=== PATIENT | female | born 1995 | race Caucasian/White ===

== ENCOUNTER 2017-01-19 16:59 | Emergency (ER) | payer SELFPAY ==
[~2017-01-19] VITALS: Ht 160 cm; Wt 79.8 kg
[2017-01-19] MEDS ORDERED: PROMETHAZINE INJ 25 MG/ML (PHENERGAN) AMP IVP STA (17:37)
[2017-01-19] MEDS ORDERED: NS IV 1000 ML 1,000 ML IV ONE (17:37)
[2017-01-19 17:46] LABS: BASOPHILS # (AUTO) 0.1 10^3/uL (0.0-0.1); BASOPHILS % (AUTO) 0 % (0-10); EOSINOPHILS # (AUTO) 0.2 10^3/uL (0.0-0.3); EOSINOPHILS % (AUTO) 1 % (0-10); LYMPHOCYTES # (AUTO) 2.4 X 10^3 (1.0-4.0); LYMPHOCYTES % (AUTO) 20 % (12-44); MEAN CORPUSCULAR HEMOGLOBIN 30 PG (25-34); MEAN CORPUSCULAR HGB CONC 34 G/DL (32-36); MEAN CORPUSCULAR VOLUME 88 FL (80-99); MEAN PLATELET VOLUME 10.1 FL (7.4-10.4); MONOCYTES # (AUTO) 1.2 X 10^3 (0.0-1.0); MONOCYTES % (AUTO) 10 % (0-12); NEUTROPHILS # (AUTO) 8.5 X 10^3 (1.8-7.8); NEUTROPHILS % (AUTO) 69 % (42-75); PLATELET COUNT 299 10^3/uL (130-400); RED BLOOD COUNT 4.61 10^6/uL (4.35-5.85); RED CELL DISTRIBUTION WIDTH 13.2 % (10.0-14.5); WHITE BLOOD COUNT 12.4 10^3/uL (4.3-11.0)
[2017-01-19 17:47] LABS: BILIRUBIN,URINE NEGATIVE (NEGATIVE); KETONES,URINE NEGATIVE (NEGATIVE); LEUKOCYTE ESTERASE ,URINE 1+ (NEGATIVE); NITRITE,URINE NEGATIVE (NEGATIVE); PH,URINE 8 (5-9); PROTEIN,URINE NEGATIVE (NEGATIVE); UROBILINOGEN,URINE NORMAL (NORMAL); WBC,URINE 0-2 /HPF
[2017-01-19 18:21] LABS: ANION GAP 7 MMOL/L (5-14); ASPARTATE AMINO TRANSFERASE 15 U/L (5-34); BILIRUBIN,TOTAL 0.2 MG/DL (0.1-1.0); BLOOD UREA NITROGEN 9 MG/DL (7-18); BUN/CREATININE RATIO 13; CALCIUM 9.2 MG/DL (8.5-10.1); CARBON DIOXIDE 28 MMOL/L (21-32); CHLORIDE 104 MMOL/L (98-107); CREATININE SERUM 0.67 MG/DL (0.60-1.30); GFR ESTIMATED > 60; GLUCOSE 89 MG/DL (70-105); POTASSIUM 4.1 MMOL/L (3.6-5.0); SODIUM 139 MMOL/L (135-145)
[2017-01-19 18:22] LABS: ALANINE AMINOTRANSFERASE 18 U/L (0-55); ALBUMIN 3.9 GM/DL (3.2-4.5); TOTAL PROTEIN 6.7 GM/DL (6.4-8.2)
--- NOTE | 2017-01-19 18:53 | ED Abdominal Pain ---
General Chief Complaint: Abdominal/GI Problems Stated Complaint: ABD PAIN Nursing Triage Note: PT REPROTS SHE HAS BEEN TOLD IN THE PAST SHE HAS GALLBLADDER ISSUES. pT REPROTS PAIN STARTED AFTER SHE ATE A JALEPENO BISCUIT AROUND 1200. PT STATES PAIN IS WORSE WITH SPICY FOODS. Sepsis Screen: No Definite Risk History of Present Illness Time Seen By Provider: 17:20 Initial Comments Patient reports right upper and lower quadrant pain. She was told a proximally 6 months ago in [place], [place] ED that she needed a cholecystectomy. She never had follow-up or was evaluated by a surgeon. She has been doing fine until the last 2 days. She reports having diarrhea yesterday and vomited one time prior to arrival today. She eats primarily spicy foods and states that it makes her abdominal pain worse. Timing/Duration: Intermittent Severity/Quality: Moderate Location: RUQ, LUQ, Flank (right) Radiation: No Radiation Modifying Factors: Improves With Lying down, Improves With Resting Associated Symptoms: Denies Symptoms Allergies and Home Medications Allergies Coded Allergies: ondansetron (Verified Allergy, Unknown, 01/19/17) Home Medications Hydrocodone/Acetaminophen 1 Each Tablet, 1 EACH PO Q4H PRN for PAIN, #20 Ref 0 Prescribed by: SHANNA ARREDONDO on 01/19/172053 Promethazine HCl 25 Mg Tablet, 25 MG PO Q6H PRN for NAUSEA/VOMITING, #12 Ref 0 Prescribed by: SHANNA ARREDONDO on 01/19/172053 Review of Systems Constitutional: no symptoms reported, see HPI EENTM: No Symptoms Reported, See HPI Gastrointestinal: See HPI, Abdominal Pain, Nausea, Vomiting Genitourinary: See HPI, Flank Pain All Other Systems Reviewed Negative Unless Noted: Yes Past Elsupff-Wqkmgs-Ukywjm Hx Patient Social History Alcohol Use: Denies Use Recreational Drug Use: No Smoking Status: Current Everyday Smoker Type Used: Cigarettes Recent Foreign Travel: No Contact w/Someone Who Travel: No Recent Infectious Disease Expo: No Physical Abuse: No Sexual Abuse: No Mistreated: No Fear: No Psychosocial Suicide Risk Score: 0 Reviewed Nursing Assessment Reviewed/Agree w Nursing PMH: Yes Physical Exam Vital Signs VS - Last 72 Hours, by Label 01/19/17 01/19/17 17:30 21:18 Temp 97.4 Pulse 89 78 Resp 20 16 B/P (MAP) Pulse Ox 97 99 Capillary Refill : Less Than 3 Seconds General Appearance: WD/WN, no apparent distress HEENT: PERRL/EOMI, normal ENT inspection, TMs normal, pharynx normal Neck: non-tender, full range of motion, supple, normal inspection Respiratory: chest non-tender, lungs clear, normal breath sounds Cardiovascular: normal peripheral pulses, regular rate, rhythm, no murmur Gastrointestinal: normal bowel sounds, soft, no organomegaly, No rebound, tenderness, other (positive Acosta sign) Back: normal inspection, no vertebral tenderness, CVA tenderness (R), No CVA tenderness (L) Neurologic/Psychiatric: no motor/sensory deficits, alert, normal mood/affect, oriented x 3 Skin: normal color, warm/dry Progress/Results/Core Measures Results/Orders Lab Results Laboratory Tests Test 01/19/17 17:25 01/19/17 17:40 Range/Units Urine Color YELLOW Urine Clarity SLIGHTLY CLOUDY Urine pH 8 5-9 Urine Specific [place] 1.015 L 1.016-1.022 Urine Protein NEGATIVE NEGATIVE Urine Glucose (UA) NEGATIVE NEGATIVE Urine Ketones NEGATIVE NEGATIVE Urine Nitrite NEGATIVE NEGATIVE Urine Bilirubin NEGATIVE NEGATIVE Urine Urobilinogen NORMAL NORMAL MG/DL Urine Leukocyte Esterase 1+ H NEGATIVE Urine RBC (Auto) NEGATIVE NEGATIVE Urine RBC NONE /HPF Urine WBC 0-2 /HPF Urine Squamous Epithelial Cells 2-5 /HPF Urine Crystals PRESENT H /LPF Urine Amorphous Sediment LARGE TING PHOSPHATE H /LPF Urine Bacteria NONE /HPF Urine Casts NONE /LPF Urine Mucus NEGATIVE /LPF Urine Culture Indicated NO White Blood Count 12.4 H 4.3-11.0 10^3/uL Red Blood Count 4.61 4.35-5.85 10^6/uL Hemoglobin 13.7 11.5-16.0 G/DL Hematocrit 40 35-52 % Mean Corpuscular Volume 88 80-99 FL Mean Corpuscular Hemoglobin 30 25-34 PG Mean Corpuscular Hemoglobin Concent 34 32-36 G/DL Red Cell Distribution Width 13.2 10.0-14.5 % Platelet Count 299 130-400 10^3/uL Mean Platelet Volume 10.1 7.4-10.4 FL Neutrophils (%) (Auto) 69 42-75 % Lymphocytes (%) (Auto) 20 12-44 % Monocytes (%) (Auto) 10 0-12 % Eosinophils (%) (Auto) 1 0-10 % Basophils (%) (Auto) 0 0-10 % Neutrophils # (Auto) 8.5 H 1.8-7.8 X 10^3 Lymphocytes # (Auto) 2.4 1.0-4.0 X 10^3 Monocytes # (Auto) 1.2 H 0.0-1.0 X 10^3 Eosinophils # (Auto) 0.2 0.0-0.3 10^3/uL Basophils # (Auto) 0.1 0.0-0.1 10^3/uL Sodium Level 139 135-145 MMOL/L Potassium Level 4.1 3.6-5.0 MMOL/L Chloride Level 104 98-107 MMOL/L Carbon Dioxide Level 28 21-32 MMOL/L Anion Gap 7 5-14 MMOL/L Blood Urea Nitrogen 9 7-18 MG/DL Creatinine 0.67 0.60-1.30 MG/DL Estimat Glomerular Filtration Rate > 60 BUN/Creatinine Ratio 13 Glucose Level 89 70-105 MG/DL Calcium Level 9.2 8.5-10.1 MG/DL Total Bilirubin 0.2 0.1-1.0 MG/DL Aspartate Amino Transf (AST/SGOT) 15 5-34 U/L Alanine Aminotransferase (ALT/SGPT) 18 0-55 U/L Alkaline Phosphatase 87 40-136 U/L Total Protein 6.7 6.4-8.2 GM/DL Albumin 3.9 3.2-4.5 GM/DL My Orders Orders - SHANNA ARREDONDO Ua Culture If Indicated (01/19/17 17:14) Urine Bedside (01/19/17 17:14) Saline Lock/Iv-Start (01/19/17 17:37) Ns Iv 1000 Ml (Sodium Chloride 0.9%) (01/19/17 17:37) Promethazine Injection (Phenergan Injec (01/19/17 17:37) Cbc With Automated Diff (01/19/17 17:37) Comprehensive Metabolic Panel (01/19/17 17:37) Us Gallbladder [id number] (01/19/17 17:56) Ketorolac Injection (Toradol Injection) (01/19/17 20:04) Morphine Injection (Morphine Injection (01/19/17 20:54) Rx-Hydrocodone/Apap 5-325 Mg (Rx-Vicodin (01/19/17 21:00) Rx-Hyoscyamine Tab (Rx-Levsin Sl) (01/19/17 20:54) Medications Given in ED Current Medications Medications Dose Ordered Sig/Kalen Route Start Time Stop Time Status Last Admin Dose Admin Acetaminophen/ Hydrocodone Bitart 1 ea Q4H PRN PO 01/19/17 21:00 01/19/17 21:28 DC 01/19/17 21:00 1 EA Sodium Chloride 1,000 ml @ 0 mls/hr Q0M ONCE IV 01/19/17 17:37 01/19/17 17:42 DC 01/19/17 18:06 0 MLS/HR Vital Signs/I&O Vital Sign - Last 12Hours 01/19/17 01/19/17 17:30 21:18 Temp 97.4 Pulse 89 78 Resp 20 16 B/P (MAP) Pulse Ox 97 99 Intake and Output 01/20/17 00:00 Intake Total 1000 ml Balance 1000 ml Progress Note : Time: 17:20 Progress Note Initial evaluation completed, recommended UA, hCG, CBC, CMP ultrasound of the gallbladder. Phenergan 25 mg IV for nausea. 1 L IV fluids, normal saline. 1829 patient reports nausea has improved. Reviewed results of her labs. Will wait for the ultrasound of the gallbladder and then discussed plans for further treatment. 1999 ultrasound shows 2 gallstones, one in the neck and one in the fundus. The neck stone is not moving. Thickening of the CBD. Discussed results of exam with the patient. She is reporting increased pain, Toradol 30 mg IV. [address] Brown about the patient, reviewed ultrasound findings. Patient is stable this time. He will see her in the office on 01/23/17 and plan surgery for next week. 2049 patient reports pain has become worse, morphine 5 mg IV for pain. 2129 patient reports pain has improved, discussed plan for her to follow up with Dr. Brown next week. She agreed with this treatment plan. Discussed at length recommendations for dietary restrictions. All questions answered. Diagnostic Imaging Diagonstic Imaging: Ultrasound Plain Films/CT/US/NM/MRI: other Comments NAME: LIZY SIMMONSCIE Kirti MED REC#: [id number] PT STATUS: REG ER : 1995 PHYSICIAN: SHANNA ARREDONDO ADMIT DATE: 01/19/17/ER Signed Date of Exam: 01/19/17 US GALLBLADDER [id number] PROCEDURE: US Gallbladder. TECHNIQUE: Multiple real-time grayscale images were obtained over the right upper quadrant in various projections. INDICATION: Abdominal pain COMPARISON: None FINDINGS: The size and echogenicity of the liver is normal. There is no mass or intrahepatic biliary duct dilatation. Portal venous flow is normal. Common bile duct is prominent for the patient's age is at 6.5 mm. There is cholelithiasis without cholecystitis. Overlying bowel gas obscures the kidneys and pancreas. There is no free fluid. IMPRESSION: 1. Cholelithiasis without cholecystitis 2. Prominent common bile duct. Consider MRCP on a nonemergent basis. Dictated by: Dictated on workstation # [id number] Dict: 01/19/172019 Trans: 01/19/172029 Interpreted by: TOSHIA HAWK Electronically signed by: TOSHIA HAWK 01/19/172029 Reviewed: Reviewed by Me Departure Impression Impression: Primary Impression: Cholelithiasis Qualified Codes: K80.20 - Calculus of gallbladder without cholecystitis without obstruction Additional Impression: Pain in the abdomen Qualified Codes: R10.11 - Right upper quadrant pain Disposition: 01 HOME, SELF-CARE Condition: Stable Departure-Patient Inst. Decision time for Depature: 20:35 Referrals: NO,LOCAL PHYSICIAN (PCP) Primary Care Physician Patient Instructions: Gallstones (DC) Add. Discharge Instructions: Eat a bland, low-fat, non-fried diet. Use pain medication as needed. Call Dr. Brown's office tomorrow [phone] for appt 01/23/17 Return to emergency department for fever greater than 101, pain not relieved with medicine, or new problems. All discharge instructions reviewed with patient and/or family. Voiced understanding. Scripts Promethazine HCl (Promethazine Tablet) 25 Mg Tablet 25 MG PO Q6H Y for NAUSEA/VOMITING, #12 TAB 0 Refills Prov: SHANNA ARREDONDO 01/19/17 Hydrocodone/Acetaminophen (Hydrocodon -Acetaminophen 5-325) 1 Each Tablet 1 EACH PO Q4H Y for PAIN, #20 TAB 0 Refills Prov: SHANNA ARREDONDO 01/19/17 Copy Copies To 1: KARLOS BROWN AMY ARNP Jan 19, 2017 18:53
[2017-01-19] MEDS ORDERED: KETOROLAC 30 MG/ML VIAL IVP STA (20:04)
--- NOTE | 2017-01-19 20:23 | Diagnostic Imaging Report ---
PROCEDURE: US Gallbladder. TECHNIQUE: Multiple real-time grayscale images were obtained over the right upper quadrant in various projections. INDICATION: Abdominal pain COMPARISON: None FINDINGS: The size and echogenicity of the liver is normal. There is no mass or intrahepatic biliary duct dilatation. Portal venous flow is normal. Common bile duct is prominent for the patient's age is at 6.5 mm. There is cholelithiasis without cholecystitis. Overlying bowel gas obscures the kidneys and pancreas. There is no free fluid. IMPRESSION: 1. Cholelithiasis without cholecystitis 2. Prominent common bile duct. Consider MRCP on a nonemergent basis. Dictated by: Dictated on workstation # [id number]
[2017-01-19] MEDS ORDERED: morphine INJ 10 MG/ML 1ML (SYR OR VIAL) IVP STA (20:54)
[2017-01-19] MEDS ORDERED: HYDR-3812 PO (20:54)
[2017-01-19] MEDS ORDERED: RX-HYOSCYAMINE 0.125 MG SL (LEVSIN) PPK#6 SL STA (20:54)
[2017-01-19] MEDS ORDERED: PROM25TA14 PO (20:54)
[2017-01-19] MEDS ORDERED: RX-HYDROCODONE/APAP 5/325 MG #4 TAB PK PO PRN (21:00)
[2017-01-19 21:18] VITALS: BP 129/76
== END 2017-01-19 21:18 | disposition home or self-care (01) ==
LOC: ER 17:02
DX: K80.20 Calculus of gallbladder without cholecystitis without obstruction (principal); F17.210 Nicotine dependence, cigarettes, uncomplicated; Z90.49 Acquired absence of other specified parts of digestive tract
CPT/HCPCS: 36415; 76705; 80053; 81000; 84703; 85025; 96361; 96374; 96375

== ENCOUNTER 2017-11-21 14:09 | Observation (INO) | payer MEDICAID ==
[~2017-11-21] VITALS: Ht 160 cm; Wt 91.6 kg
[~2017-11-21 14:09] MED LIST: ACHD5005 PO; PROM25TA14 PO
[2017-11-21 16:18] VITALS: BP 116/61
[2017-11-22 07:05] VITALS: BP 110/61
[2017-11-22 07:30] VITALS: BP 117/61
--- NOTE | 2017-11-22 08:15 | Clinic Account Progress/Dx ---
Clinic Account Progress/Dx DIAGNOSIS: Date Seen by Provider: Nov 22, 2017 Time Seen by Provider: 08:11 33wk GA Variable deceleration noted in FHR in the OP clinic Hx of demise at 27 wk w/ previous Reassuring/reactive FHT on tracing throughout observation Progress Note: Patient admitted for observation due to noted variable decels on NST at the clinic. Hx of demise at 27 wk w/ prior following abdominal trauma. Physical Exam: gravid uterus, NTTP toco - rare small contraction FHT 140-150's w/ accelerations Plan: BPP scheduled for this am - if normal will DC home. GILES CHAIREZ DO Nov 22, 2017 08:15
--- NOTE | 2017-11-22 10:24 | Diagnostic Imaging Report ---
biophysical profile score. INDICATION: Decreased movement. There are no prior studies available for comparison. There is single live fetus in cephalic presentation. heart motion was noted at a rate of 140 bpm was recorded. The biophysical profile score is 8 out of 8 and within normal limits. The amniotic fluid index is 9.3 (normal 8-22 CM). The placenta appears to be fundal. There is no previa or abruption. IMPRESSION: 1. There is a single live fetus in cephalic presentation. 2. The biophysical profile score is 8 out of 8 and within normal limits. Dictated by: Dictated on workstation # [id number]
== END 2017-11-22 09:05 | disposition home or self-care (01) ==
LOC: EDSTATUS 14:09 → LDRP 15:55 → WSo 16:02 → LDRP 11-22 08:10 → UNDOADMOB 11-22 08:10 → WSo 11-22 08:10 → LDRP 11-22 08:10 → UNDODISOB 11-22 09:05 → WSo 11-22 09:05 → LDRP 11-22 09:05
PROVIDERS: ADMIT Family Medicine; ATTEND Family Medicine
DX: O36.8330 Maternal care for abnormalities of the fetal heart rate or rhythm, third trimester, not applicable or unspecified (principal); Z3A.33 33 weeks gestation of pregnancy
CPT/HCPCS: 76819; 99211; G0378

== ENCOUNTER 2017-11-25 10:22 | Outpatient (CLI) | payer MEDICAID ==
[~2017-11-25] VITALS: Ht 160 cm; Wt 93.6 kg
[2017-11-25 12:13] LABS: BILIRUBIN,URINE NEGATIVE (NEGATIVE); CLARITY,URINE CLEAR; COLOR,URINE YELLOW; GLUCOSE, URINE (UA) NEGATIVE (NEGATIVE); KETONES,URINE NEGATIVE (NEGATIVE); LEUKOCYTE ESTERASE ,URINE 3+ (NEGATIVE); NITRITE,URINE NEGATIVE (NEGATIVE); PH,URINE 7 (5-9); PROTEIN,URINE NEGATIVE (NEGATIVE); UROBILINOGEN,URINE NORMAL (NORMAL)
[2017-11-25 12:21] LABS: BACTERIA,URINE TRACE /HPF
--- NOTE | 2017-11-27 21:04 | Physician Query-Final Dx ---
CARLA SWANSON 11/27/17 2104: Clinic Account Progress/Dx Physician Query: Please give diagnosis Date of Service Nov 25, 2017 at 10:22 CHARLI KAM DO 11/30/17 0928: Clinic Account Progress/Dx DIAGNOSIS: Diagnosis Contractions CARLA SWANSON Nov 27, 2017 21:04 CHARLI KAM DO Nov 30, 2017 09:28
== END 2017-11-25 12:00 | disposition home or self-care (01) ==
LOC: WSo 10:22 → LDRP 10:22 → WSo 12:00
PROVIDERS: ATTEND Family Medicine
DX: O60.03 Preterm labor without delivery, third trimester (principal); Z3A.32 32 weeks gestation of pregnancy
CPT/HCPCS: 81000; 87077; 87088; 99213

== ENCOUNTER 2017-12-16 21:40 | Outpatient (CLI) | payer MEDICAID ==
[~2017-12-16] VITALS: Ht 160 cm; Wt 98.9 kg
[2017-12-16 21:50] VITALS: BP 123/69
[2017-12-16 22:14] LABS: BILIRUBIN,URINE NEGATIVE (NEGATIVE); CLARITY,URINE CLEAR; COLOR,URINE YELLOW; GLUCOSE, URINE (UA) NEGATIVE (NEGATIVE); KETONES,URINE NEGATIVE (NEGATIVE); LEUKOCYTE ESTERASE ,URINE 3+ (NEGATIVE); NITRITE,URINE NEGATIVE (NEGATIVE); PH,URINE 7 (5-9); PROTEIN,URINE NEGATIVE (NEGATIVE); UROBILINOGEN,URINE NORMAL (NORMAL)
[2017-12-16 22:36] LABS: BACTERIA,URINE MODERATE /HPF; TRICHOMONAS,URINE FEW /HPF
[2017-12-16] MEDS ORDERED: metroNIDAZOLE 500 MG (FLAGYL) TAB PO ONE (23:15)
[2017-12-17] MEDS ORDERED: ACETAMINOPHEN 325 MG TABLET ONE (00:05)
[2017-12-17] MEDS ORDERED: ACETAMINOPHEN 500 MG TAB (TYLENOL) PO ONE (00:15)
--- NOTE | 2017-12-20 14:33 | Physician Query-Final Dx ---
CARLA SWANSON 12/20/17 1433: Clinic Account Progress/Dx Physician Query: Please give diagnosis Please provide dx and weeks of gestation. Date of Service Dec 16, 2017 at 21:40 HUMBLE PERDUE MD 12/29/17 1632: Clinic Account Progress/Dx DIAGNOSIS: Diagnosis 37 weeks gestation Contractions with no cervical change CARLA SWANSON Dec 20, 2017 14:33 HUMBLE PERDUE MD Dec 29, 2017 16:32
== END 2017-12-17 00:20 | disposition home or self-care (01) ==
LOC: WSo 21:40 → LDRP 21:41 → WSo 12-17 00:20
PROVIDERS: ATTEND Family Medicine
DX: O47.1 False labor at or after 37 completed weeks of gestation (principal); Z3A.37 37 weeks gestation of pregnancy
CPT/HCPCS: 81000; 87088; 99214

== ENCOUNTER 2018-11-28 05:49 | Outpatient (CLI) | payer MEDICAID ==
[~2018-11-28] VITALS: Ht 160 cm; Wt 98.9 kg
[2018-11-30] MEDS ORDERED: IBUP-1773 PO (08:51)
== END 2018-11-28 09:34 | disposition home or self-care (01) ==
LOC: PREOP 05:49
PROVIDERS: ATTEND Obstetrics & Gynecology
DX: Z01.818 Encounter for other preprocedural examination (principal)

== ENCOUNTER 2018-11-30 08:09 | Day surgery (SDC) | payer MEDICAID ==
[2018-11-30] VITALS (12 sets, daily range): BP systolic 94–124; BP diastolic 46–64
[~2018-11-30] VITALS: Ht 160 cm; Wt 98.9 kg
--- OUTSIDE RECORDS SUMMARY | 2018-11-30 08:16 | XMS REPORT ---
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 [id number] ALLERGIES No Information ENCOUNTERS Encounter Location Date Diagnosis [place] [id number] [place] [address] Nov, [place] [address] [address] Nov, Third trimester Z34.93 ; 37 weeks gestation of Z3A.37 ; Late care affecting in third trimester O09.33 and Previous section Z98.891 [place] [id number] [place] [address] Nov, [place] [id number] [place] [address] Nov, [place] [id number] [place] [address] Nov, Third trimester Z34.93 and 36 weeks gestation of Z3A.36 [place] [id number] [place] [phone] 08 Nov, 2017 Third trimester Z34.93 and 35 weeks gestation of Z3A.35 [place] [id number] [place] [address] Nov, [place] [id number] [place] [address] Oct, [place] [address] [facility] [id number] [address] Oct, UTI (urinary tract infection) in in third trimester O23.43 [place] [address], [place] [address] Oct, Third trimester Z34.93 ; Decreased movements in third trimester, single or unspecified fetus O36.8130 and 33 weeks gestation of Z3A.33 [place] [address], [place] [address] Oct, Third trimester Z34.93 ; 30 weeks gestation of Z3A.30 ; Previous section complicating O34.219 and Encounter for immunization Z23 [place] [address] [address] Sep, [place] [id number] [address] Sep, test positive Z32.01 IMMUNIZATIONS No Known Immunizations SOCIAL HISTORY Never Assessed REASON FOR VISIT OB 1wk f/u -- chaparrita andujar PLAN OF CARE Activity Details Follow Up 1 Week Reason: VITAL SIGNS Height 63 in 2017-12-20 Weight 218.0 lbs 2017-12-20 Temperature 97.8 degrees Fahrenheit 2017-12-20 BMI 38.617 kg/m2 2017-12-20 Blood pressure systolic 128 mmHg 2017-12-20 Blood pressure diastolic 78 mmHg 2017-12-20 MEDICATIONS Medication Instructions Dosage Frequency Start Date End Date Duration Status 28-0.8 MG Orally Once a day 1 tablet 24h Active RESULTS Name Result Date Reference Range UA OB DIP (IN HOUSE) 2017-12-20 Glucose negative Protein negative PROCEDURES Procedure Date Ordered Result Body Site URINE-NO MICRO Dec 20, 2017 INSTRUCTIONS MEDICATIONS ADMINISTERED No Known Medications MEDICAL (GENERAL) HISTORY Type Description Date Medical History Asthma Medical History Depression Surgical History cholecystectomy Surgical History tonsillectomy and adenoidectomy Hospitalization History UTI/ monitoring 11/21/17
--- OUTSIDE RECORDS SUMMARY | 2018-11-30 08:17 | XMS REPORT ---
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 0182996567346 ALLERGIES No Information ENCOUNTERS Encounter Location Date Diagnosis [place] [id number] [place] [address] Nov, [place] [address] [address] Nov, Third trimester Z34.93 ; 37 weeks gestation of Z3A.37 ; Late care affecting in third trimester O09.33 and Previous section Z98.891 [place] [address] [id number] [place] [address] Nov, [place] [address] [id number] [place] [address] Nov, [place] [address] [id number] [place] [address] Nov, Third trimester Z34.93 and 36 weeks gestation of Z3A.36 [place] [address] [address] 08 Nov, 2017 Third trimester Z34.93 and 35 weeks gestation of Z3A.35 [place] [address] [id number] [place] [phone] Nov, [place] [address] [address] Oct, [place] [address] [facility] [id number] [address] Oct, UTI (urinary tract infection) in in third trimester O23.43 [place] [address] [address] Oct, Third trimester Z34.93 ; Decreased movements in third trimester, single or unspecified fetus O36.8130 and 33 weeks gestation of Z3A.33 [place] [address] [place] [address] Oct, Third trimester Z34.93 ; 30 weeks gestation of Z3A.30 ; Previous section complicating O34.219 and Encounter for immunization Z23 [place] [address] [address] Sep, [place] [address] [place] [address] Sep, test positive Z32.01 IMMUNIZATIONS No Known Immunizations SOCIAL HISTORY Never Assessed REASON FOR VISIT test (walk-in) PLAN OF CARE VITAL SIGNS MEDICATIONS Unknown Medications RESULTS Name Result Date Reference Range TEST, URINE (IN HOUSE) 2017-10-23 RESULTS POSITIVE Lot # [id number] Control + Exp date 28 Feb 2019 PROCEDURES Procedure Date Ordered Result Body Site URINE TEST October 23, 2017 INSTRUCTIONS MEDICATIONS ADMINISTERED No Known Medications MEDICAL (GENERAL) HISTORY Type Description Date Medical History Asthma Medical History Depression Surgical History cholecystectomy Surgical History tonsillectomy and adenoidectomy Hospitalization History UTI/ monitoring 11/21/17
--- OUTSIDE RECORDS SUMMARY | 2018-11-30 08:17 | XMS REPORT ---
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 [id number] ALLERGIES Substance Reaction Event Type Date Status Bria Hives Drug Allergy Oct, Active Codeine Sulfate anaphylaxis Drug Allergy Oct, Active ENCOUNTERS Encounter Location Date Diagnosis [place] [address] [place] [address] Nov, [place] [address] [place] [id number] [place] [address] Nov, Third trimester Z34.93 ; 37 weeks gestation of Z3A.37 ; Late care affecting in third trimester O09.33 and Previous section Z98.891 [place] [address] [place] [address] Nov, [place] [address] [place] [id number] [place] [address] Nov, [place] [address] [address] [id number] [place] [address] Nov, Third trimester Z34.93 and 36 weeks gestation of Z3A.36 [place] [address] [place] [address] [id number] [place] [address] Nov, Third trimester Z34.93 and 35 weeks gestation of Z3A.35 [place] [address] [address] [id number] [place] [address] Nov, [place] [address] [place] [address] [id number] [place] [address] Oct, [place] [address] [place] [address] Oct, UTI (urinary tract infection) in in third trimester O23.43 [place] [address] [address] Oct, Third trimester Z34.93 ; Decreased movements in third trimester, single or unspecified fetus O36.8130 and 33 weeks gestation of Z3A.33 [place] [id number] [place] [address] Oct, Third trimester Z34.93 ; 30 weeks gestation of Z3A.30 ; Previous section complicating O34.219 and Encounter for immunization Z23 [place] [id number] [place] [address] Sep, [place] [address] [place] [address] Sep, test positive Z32.01 IMMUNIZATIONS Vaccine Route Administration Date Status TDAP (BOOSTRIX) IM Intramuscular October 30, 2017 Administered SOCIAL HISTORY Never Assessed REASON FOR VISIT OB-intake. Previously seen by an OB in [place]. Has had a pelvic [facility] PLAN OF CARE Activity Details Follow Up 2 Weeks Reason: VITAL SIGNS Height 63 in 2017-10-30 Weight 201 lbs 2017-10-30 Temperature 98 degrees Fahrenheit 2017-10-30 Heart Rate 94 bpm 2017-10-30 Respiratory Rate 18 2017-10-30 BMI 35.606 kg/m2 2017-10-30 Blood pressure systolic 100 mmHg 2017-10-30 Blood pressure diastolic 60 mmHg 2017-10-30 MEDICATIONS Medication Instructions Dosage Frequency Start Date End Date Duration Status 28-0.8 MG Orally Once a day 1 tablet 24h Active RESULTS No Results PROCEDURES Procedure Date Ordered Result Body Site URINALYSIS, AUTO, W/O SCOPE October 30, 2017 VENIPUNCT, ROUTINE* October 30, 2017 LAB NOT BILLED BY [facility] October 30, 2017 SINGLE IMMUNIZATION ADMIN October 30, 2017 TDAP (BOOSTRIX) October 30, 2017 INSTRUCTIONS MEDICATIONS ADMINISTERED No Known Medications MEDICAL (GENERAL) HISTORY Type Description Date Medical History Asthma Medical History Depression Surgical History cholecystectomy Surgical History tonsillectomy and adenoidectomy Hospitalization History UTI/ monitoring 11/21/17
--- OUTSIDE RECORDS SUMMARY | 2018-11-30 08:17 | XMS REPORT ---
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 8977994323248 ALLERGIES No Information ENCOUNTERS Encounter Location Date Diagnosis [place] [address] [place] [id number] [place] [address] Nov, [place] [address] [address] Nov, Third trimester Z34.93 ; 37 weeks gestation of Z3A.37 ; Late care affecting in third trimester O09.33 and Previous section Z98.891 [place] [address] [place] [address] [id number] [place] [address] Nov, [place] [address] [place] [id number] [place] [address] Nov, [place] [address] [place] [id number] [place] [address] Nov, Third trimester Z34.93 and 36 weeks gestation of Z3A.36 [place] [address] [place] [address] [id number] [place] [address] 08 Nov, 2017 Third trimester Z34.93 and 35 weeks gestation of Z3A.35 [place] [address] [place] [address] [id number] [place] [address] Nov, [place] [address] [place] [id number] [place] [address] Oct, [place] [address] [place] [id number], [place] [address] Oct, UTI (urinary tract infection) in in third trimester O23.43 [place] [address], [place] [address] Oct, Third trimester Z34.93 ; Decreased movements in third trimester, single or unspecified fetus O36.8130 and 33 weeks gestation of Z3A.33 [place] [address] [place] [address] Oct, Third trimester Z34.93 ; 30 weeks gestation of Z3A.30 ; Previous section complicating O34.219 and Encounter for immunization Z23 [place] [address], [place] [address] Sep, [place] [address] [place] [address] Sep, test positive Z32.01 IMMUNIZATIONS No Known Immunizations SOCIAL HISTORY Never Assessed REASON FOR VISIT Requests return call PLAN OF CARE VITAL SIGNS MEDICATIONS Unknown Medications RESULTS No Results PROCEDURES No Known procedures INSTRUCTIONS MEDICATIONS ADMINISTERED No Known Medications MEDICAL (GENERAL) HISTORY Type Description Date Medical History Asthma Medical History Depression Surgical History cholecystectomy Surgical History tonsillectomy and adenoidectomy Hospitalization History UTI/ monitoring 11/21/17
--- OUTSIDE RECORDS SUMMARY | 2018-11-30 08:17 | XMS REPORT ---
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 7908975709639 ALLERGIES Substance Reaction Event Type Date Status Zooliva Hives Drug Allergy Oct, Active Codeine Sulfate anaphylaxis Drug Allergy Oct, Active ENCOUNTERS Encounter Location Date Diagnosis [place] [address] [place] [address] Nov, [place] [address] [place] [id number] [place] [address] Nov, Third trimester Z34.93 ; 37 weeks gestation of Z3A.37 ; Late care affecting in third trimester O09.33 and Previous section Z98.891 [place] [address] [place] [address] Nov, [place] [address] [place] [id number] [place] [address] Nov, [place] [address] [place] [address] [id number] [place] [address] Nov, Third trimester Z34.93 and 36 weeks gestation of Z3A.36 [place] [address] [place] [id number] [place] [address] Nov, Third trimester Z34.93 and 35 weeks gestation of Z3A.35 [place] [address] [place] [id number] [place] [address] Nov, [place] [address] [place] [address] Oct, [place] [id number] [place] [address] Oct, UTI (urinary tract infection) in in third trimester O23.43 [place] [id number] [place] [address] Oct, Third trimester Z34.93 ; Decreased movements in third trimester, single or unspecified fetus O36.8130 and 33 weeks gestation of Z3A.[address] [address] Oct, Third trimester Z34.93 ; 30 weeks gestation of Z3A.30 ; Previous section complicating O34.219 and Encounter for immunization Z23 [place] [id number] [place] [address] Sep, [place] [address] [place] [address] [place] [address] Sep, test positive Z32.01 IMMUNIZATIONS No Known Immunizations SOCIAL HISTORY Never Assessed REASON FOR VISIT sharp pains ;lower part of belly x 1 week -- chaparrita andujar PLAN OF CARE Activity Details Follow Up 2 Weeks Reason: VITAL SIGNS Height 63 in 2017-11-21 Weight 202.0 lbs 2017-11-21 Temperature 98.0 degrees Fahrenheit 2017-11-21 Heart Rate 90 bpm 2017-11-21 Respiratory Rate 22 2017-11-21 BMI 35.783 kg/m2 2017-11-21 Blood pressure systolic 130 mmHg 2017-11-21 Blood pressure diastolic 86 mmHg 2017-11-21 MEDICATIONS Medication Instructions Dosage Frequency Start Date End Date Duration Status 28-0.8 MG Orally Once a day 1 tablet 24h Active RESULTS Name Result Date Reference Range UA OB DIP (IN HOUSE) 2017-11-21 Glucose neg Protein trace PROCEDURES Procedure Date Ordered Result Body Site URINE-NO MICRO November 21, 2017 INSTRUCTIONS MEDICATIONS ADMINISTERED No Known Medications MEDICAL (GENERAL) HISTORY Type Description Date Medical History Asthma Medical History Depression Surgical History cholecystectomy Surgical History tonsillectomy and adenoidectomy Hospitalization History UTI/ monitoring 11/21/17
--- OUTSIDE RECORDS SUMMARY | 2018-11-30 08:17 | XMS REPORT ---
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 2376653665127 ALLERGIES No Information ENCOUNTERS Encounter Location Date Diagnosis [place] [address] [id number] [place] [address] Nov, [place] [address] [address] Nov, Third trimester Z34.93 ; 37 weeks gestation of Z3A.37 ; Late care affecting in third trimester O09.33 and Previous section Z98.891 [place] [address] [place] [id number] [place] [address] Nov, [place] [address] [address] [id number] [place] [address] Nov, [place] [address] [id number] [place] [address] Nov, Third trimester Z34.93 and 36 weeks gestation of Z3A.36 [place] [address] [place] [id number] [place] [address] 08 Nov, 2017 Third trimester Z34.93 and 35 weeks gestation of Z3A.35 [place] [address] [id number] [place] [address] Nov, [place] [address] [id number] [place] [address] Oct, [place] [address] [place] [id number] [address] Oct, UTI (urinary tract infection) in in third trimester O23.43 [place] [address] [address] Oct, Third trimester Z34.93 ; Decreased movements in third trimester, single or unspecified fetus O36.8130 and 33 weeks gestation of Z3A.33 [place] [address] [place] [address] Oct, Third trimester Z34.93 ; 30 weeks gestation of Z3A.30 ; Previous section complicating O34.219 and Encounter for immunization Z23 [place] [address] [address] Sep, [place] [address] [place] [address] Sep, test positive Z32.01 IMMUNIZATIONS No Known Immunizations SOCIAL HISTORY Never Assessed REASON FOR VISIT GBS Positive PLAN OF CARE VITAL SIGNS MEDICATIONS Unknown Medications RESULTS No Results PROCEDURES No Known procedures INSTRUCTIONS MEDICATIONS ADMINISTERED No Known Medications MEDICAL (GENERAL) HISTORY Type Description Date Medical History Asthma Medical History Depression Surgical History cholecystectomy Surgical History tonsillectomy and adenoidectomy Hospitalization History UTI/ monitoring 11/21/17
--- OUTSIDE RECORDS SUMMARY | 2018-11-30 08:17 | XMS REPORT ---
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 1245302677495 ALLERGIES No Information ENCOUNTERS Encounter Location Date Diagnosis [place] [address] [place] [id number] [place] [address] Nov, [place] [address] [address] Nov, Third trimester Z34.93 ; 37 weeks gestation of Z3A.37 ; Late care affecting in third trimester O09.33 and Previous section Z98.891 [place] [address] [place] [address] [id number] [place] [address] Nov, [place] [address] [place] [address] [id number] [place] [address] Nov, [place] [address] [place] [id number] [place] [address] Nov, Third trimester Z34.93 and 36 weeks gestation of Z3A.36 [place] [address] [id number] [place] [address] 08 Nov, 2017 Third trimester Z34.93 and 35 weeks gestation of Z3A.35 [place] [address] [id number] [place] [address] Nov, [place] [address] [address] [id number] [place] [address] Oct, [place] [address] [address] Oct, UTI (urinary tract infection) in in third trimester O23.43 [place] [address] [address] Oct, Third trimester Z34.93 ; Decreased movements in third trimester, single or unspecified fetus O36.8130 and 33 weeks gestation of Z3A.33 [place] [address] [place] [address] Oct, Third trimester Z34.93 ; 30 weeks gestation of Z3A.30 ; Previous section complicating O34.219 and Encounter for immunization Z23 [address] [place] [address] Sep, [place] [address] [place] [address] Sep, test positive Z32.01 IMMUNIZATIONS No Known Immunizations SOCIAL HISTORY Never Assessed REASON FOR VISIT OB 1wk f/u PLAN OF CARE Activity Details Follow Up 1 Week, 1 Week Reason: VITAL SIGNS Height 63 in 2017-12-13 Weight 213.7 lbs 2017-12-13 Temperature 98.4 degrees Fahrenheit 2017-12-13 Heart Rate 107 bpm 2017-12-13 Respiratory Rate 20 2017-12-13 BMI 37.855 kg/m2 2017-12-13 Blood pressure systolic 116 mmHg 2017-12-13 Blood pressure diastolic 58 mmHg 2017-12-13 MEDICATIONS Medication Instructions Dosage Frequency Start Date End Date Duration Status 28-0.8 MG Orally Once a day 1 tablet 24h Active RESULTS Name Result Date Reference Range UA OB DIP (IN HOUSE) 2017-12-13 Glucose neg Protein neg PROCEDURES Procedure Date Ordered Result Body Site NON-STRESS TEST 2017-12-13 N/A URINE-NO MICRO Dec 13, 2017 NON-STRESS TEST Dec 13, 2017 INSTRUCTIONS MEDICATIONS ADMINISTERED No Known Medications MEDICAL (GENERAL) HISTORY Type Description Date Medical History Asthma Medical History Depression Surgical History cholecystectomy Surgical History tonsillectomy and adenoidectomy Hospitalization History UTI/ monitoring 11/21/17
--- OUTSIDE RECORDS SUMMARY | 2018-11-30 08:17 | XMS REPORT ---
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 1642764223298 ALLERGIES No Information ENCOUNTERS Encounter Location Date Diagnosis [place] [id number] [place] [address] Nov, [place] [address] [address] Nov, Third trimester Z34.93 ; 37 weeks gestation of Z3A.37 ; Late care affecting in third trimester O09.33 and Previous section Z98.891 [place] [address] [place] [id number] [place] [address] Nov, [place] [address] [place] [id number] [place] [address] Nov, [place] [address] [place] [address] [id number] [place] [address] Nov, Third trimester Z34.93 and 36 weeks gestation of Z3A.36 [place] [address] [place] [address] [id number] [place] [address] 08 Nov, 2017 Third trimester Z34.93 and 35 weeks gestation of Z3A.35 [place] [address] [place] [address] [id number] [place] [address] Nov, [place] [address] [place] [address] [id number] [place] [address] Oct, [place] [address] [place] [id number] [address] Oct, UTI (urinary tract infection) in in third trimester O23.43 [place] [address] [address] Oct, Third trimester Z34.93 ; Decreased movements in third trimester, single or unspecified fetus O36.8130 and 33 weeks gestation of Z3A.33 [place] [address] [place] [address] Oct, Third trimester Z34.93 ; 30 weeks gestation of Z3A.30 ; Previous section complicating O34.219 and Encounter for immunization Z23 [place] [address] [address] Sep, [place] [address] [place] [address] Sep, test positive Z32.01 IMMUNIZATIONS No Known Immunizations SOCIAL HISTORY Never Assessed REASON FOR VISIT ER Notification/Follow up PLAN OF CARE VITAL SIGNS MEDICATIONS Unknown Medications RESULTS No Results PROCEDURES No Known procedures INSTRUCTIONS MEDICATIONS ADMINISTERED No Known Medications MEDICAL (GENERAL) HISTORY Type Description Date Medical History Asthma Medical History Depression Surgical History cholecystectomy Surgical History tonsillectomy and adenoidectomy Hospitalization History UTI/ monitoring 11/21/17
--- OUTSIDE RECORDS SUMMARY | 2018-11-30 08:17 | XMS REPORT ---
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 6892568647084 ALLERGIES Substance Reaction Event Type Date Status Zooliva Hives Drug Allergy Sep, Active Codeine Sulfate anaphylaxis Drug Allergy Sep, Active ENCOUNTERS Encounter Location Date Diagnosis [address] [place] [address] Nov, [place] [id number] [place] [address] Nov, Third trimester Z34.93 ; 37 weeks gestation of Z3A.37 ; Late care affecting in third trimester O09.33 and Previous section Z98.891 [place] [address] [address] [address] [place] [address] Nov, [place] [address] [place] [address] [address] [place] [address] Nov, [place] [address] [place] [address] [address] [place] [address] Nov, Third trimester Z34.93 and 36 weeks gestation of Z3A.36 [place] [address] [place] [address] [address] [place] [address] Nov, Third trimester Z34.93 and 35 weeks gestation of Z3A.35 [place] [address] [place] [address] [place] [address] Nov, [place] [address] [address] Oct, [place] [address] [place] [address] Oct, UTI (urinary tract infection) in in third trimester O23.43 [place] [address] [place] [address] Oct, Third trimester Z34.93 ; Decreased movements in third trimester, single or unspecified fetus O36.8130 and 33 weeks gestation of Z3A.33 [place] [address] [place] [address] [address] [place] [address] Oct, Third trimester Z34.93 ; 30 weeks gestation of Z3A.30 ; Previous section complicating O34.219 and Encounter for immunization Z23 [place] [address] [place] [address] Sep, [place] [address] [place] [address] Sep, test positive Z32.01 IMMUNIZATIONS No Known Immunizations SOCIAL HISTORY Never Assessed REASON FOR VISIT OB Flowsheet History--ADaviedRN PLAN OF CARE VITAL SIGNS MEDICATIONS Unknown Medications RESULTS No Results PROCEDURES No Known procedures INSTRUCTIONS MEDICATIONS ADMINISTERED No Known Medications MEDICAL (GENERAL) HISTORY Type Description Date Medical History Asthma Medical History Depression Surgical History cholecystectomy Surgical History tonsillectomy and adenoidectomy Hospitalization History UTI/ monitoring 11/21/17
--- OUTSIDE RECORDS SUMMARY | 2018-11-30 08:17 | XMS REPORT ---
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 7030686482058 ALLERGIES No Information ENCOUNTERS Encounter Location Date Diagnosis [place] [address] [place] [address] Nov, [place] [address] [address] [id number] [place] [address] Nov, Third trimester Z34.93 ; 37 weeks gestation of Z3A.37 ; Late care affecting in third trimester O09.33 and Previous section Z98.891 [place] [address] [id number] [place] [address] Nov, [place] [address] [place] [address] Nov, [place] [address] [address] [id number] [place] [address] Nov, Third trimester Z34.93 and 36 weeks gestation of Z3A.36 [place] [address] [address] [id number] [place] [address] Nov, Third trimester Z34.93 and 35 weeks gestation of Z3A.35 [place] [address] [place] [address] Nov, [place] [address] [place] [id number], [place] [address] Oct, [place] [address] [place] [address] Oct, UTI (urinary tract infection) in in third trimester O23.43 [place] [address] [place] [address] Oct, Third trimester Z34.93 ; Decreased movements in third trimester, single or unspecified fetus O36.8130 and 33 weeks gestation of Z3A.33 [place] [address] [address] [id number] [place] [address] Oct, Third trimester Z34.93 ; 30 weeks gestation of Z3A.30 ; Previous section complicating O34.219 and Encounter for immunization Z23 [address] [place] [address] Sep, [place] [address] [place] [address] Sep, test positive Z32.01 IMMUNIZATIONS No Known Immunizations SOCIAL HISTORY Never Assessed REASON FOR VISIT Notify Patient of Labs PLAN OF CARE VITAL SIGNS MEDICATIONS Medication Instructions Dosage Frequency Start Date End Date Duration Status Macrobid 100 mg Orally every 12 hrs 1 capsule with food 12h Oct, Nov, 7 day(s) Active RESULTS No Results PROCEDURES No Known procedures INSTRUCTIONS MEDICATIONS ADMINISTERED No Known Medications MEDICAL (GENERAL) HISTORY Type Description Date Medical History Asthma Medical History Depression Surgical History cholecystectomy Surgical History tonsillectomy and adenoidectomy Hospitalization History UTI/ monitoring 11/21/17
--- OUTSIDE RECORDS SUMMARY | 2018-11-30 08:17 | XMS REPORT ---
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 3181982507344 ALLERGIES No Information ENCOUNTERS Encounter Location Date Diagnosis [place] [address] [id number] [place] [address] Nov, [place] [address] [address] Nov, Third trimester Z34.93 ; 37 weeks gestation of Z3A.37 ; Late care affecting in third trimester O09.33 and Previous section Z98.891 [place] [address] [address] [place] [address] Nov, [place] [address] [address] [address] [place] [address] Nov, [place] [address] [address] [place] [address] Nov, Third trimester Z34.93 and 36 weeks gestation of Z3A.36 [place] [id number] [place] [address] 08 Nov, 2017 Third trimester Z34.93 and 35 weeks gestation of Z3A.35 [place] [address] [address] [address] [place] [address] Nov, [place] [address] [id number] [place] [address] Oct, [place] [address] [place] [id number], [place] [address] Oct, UTI (urinary tract infection) in in third trimester O23.43 [place] [address], [place] [address] Oct, Third trimester Z34.93 ; Decreased movements in third trimester, single or unspecified fetus O36.8130 and 33 weeks gestation of Z3A.33 [place] [address] [place] [address] Oct, Third trimester Z34.93 ; 30 weeks gestation of Z3A.30 ; Previous section complicating O34.219 and Encounter for immunization Z23 [place] [address], [place] [address] Sep, [place] [address] [place] [address] Sep, test positive Z32.01 IMMUNIZATIONS No Known [...]
--- OUTSIDE RECORDS SUMMARY | 2018-11-30 08:17 | XMS REPORT | Continuity of Care Document ---
Author Organization Unknown Address Unknown Phone Unavailable Allergies There is no data. Medications There is no data. Problems There is no data. Procedures There is no data. Results Test Result Range CBC - 10/30/17 14:23 WHITE BLOOD CELL COUNT 20.8 Thousand/uL 3.8-10.8 RED BLOOD CELL COUNT 3.65 Million/uL 3.80-5.10 HEMOGLOBIN 11.4 g/dL 11.7-15.5 HEMATOCRIT 33.1 % 35.0-45.0 MCV 90.7 fL 80.0-100.0 MCH 31.2 pg 27.0-33.0 MCHC 34.4 g/dL 32.0-36.0 RDW 12.5 % 11.0-15.0 PLATELET COUNT 329 Thousand/uL 140-400 MPV 10.3 fL 7.5-12.5 ABSOLUTE NEUTROPHILS 53144 cells/uL 5342-1504 ABSOLUTE LYMPHOCYTES 2766 cells/uL 850-3900 ABSOLUTE MONOCYTES 1227 cells/uL 200-950 ABSOLUTE EOSINOPHILS 208 cells/uL 15-500 ABSOLUTE BASOPHILS 62 cells/uL 0-200 NEUTROPHILS 79.5 % NRG LYMPHOCYTES 13.3 % NRG MONOCYTES 5.9 % NRG EOSINOPHILS 1.0 % NRG BASOPHILS 0.3 % NRG COMMENT(S) NRG Encounters ACCT No. Visit Date/Time Discharge Status Pt. Type Provider Facility Loc./Unit Complaint [id number] 10/26/2018 11:40:00 10/26/2018 23:59:59 CLS Outpatient [facility] [id number] 10/30/2017 13:20:00 Document Registration
--- OUTSIDE RECORDS SUMMARY | 2018-11-30 08:17 | XMS REPORT ---
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 [id number] ALLERGIES Substance Reaction Event Type Date Status Zofrnirali Hives Drug Allergy Nov, Active Codeine Sulfate anaphylaxis Drug Allergy Nov, Active ENCOUNTERS Encounter Location Date Diagnosis [place] [id number] [place] [phone] Nov, [place] [address] [place] [id number] [place] [phone] Nov, Third trimester Z34.93 ; 37 weeks gestation of Z3A.37 ; Late care affecting in third trimester O09.33 and Previous section Z98.891 [place] [id number] [place] [phone] Nov, [place] [address] [place] [id number] [place] [phone] Nov, [place] [address] [place] [id number] [place] [phone] Nov, Third trimester Z34.93 and 36 weeks gestation of Z3A.36 [place] [address] [place] [id number] [place] [phone] Nov, Third trimester Z34.93 and 35 weeks gestation of Z3A.35 [place] [address] [place] [id number] [place] [phone] Nov, [place] [id number] [place] [phone] Oct, [place] [id number] [place] [phone] Oct, UTI (urinary tract infection) in in third trimester O23.[address] [address] Oct, Third trimester Z34.93 ; Decreased movements in third trimester, single or unspecified fetus O36.8130 and 33 weeks gestation of Z3A.[address] [address] Oct, Third trimester Z34.93 ; 30 weeks gestation of Z3A.30 ; Previous section complicating O34.219 and Encounter for immunization Z23 [place] [id number] [place] [phone] Sep, [place] [address] [place] [id number] [place] [phone] Sep, test positive Z32.01 IMMUNIZATIONS No Known Immunizations SOCIAL HISTORY Never Assessed REASON FOR VISIT Hosp F/U, OB 36 weeks----DBennettRN PLAN OF CARE Activity Details Follow Up 1 Week Reason: VITAL SIGNS Height 63 in 2017-12-06 Weight 210 lbs 2017-12-06 Temperature 97.0 degrees Fahrenheit 2017-12-06 Heart Rate 100 bpm 2017-12-06 Respiratory Rate 20 2017-12-06 BMI 37.2 kg/m2 2017-12-06 Blood pressure systolic 122 mmHg 2017-12-06 Blood pressure diastolic 74 mmHg 2017-12-06 MEDICATIONS Medication Instructions Dosage Frequency Start Date End Date Duration Status 28-0.8 MG Orally Once a day 1 tablet 24h Active RESULTS Name Result Date Reference Range UA OB DIP (IN HOUSE) 2017-12-06 Glucose negative Protein negative PROCEDURES No Known procedures INSTRUCTIONS MEDICATIONS ADMINISTERED No Known Medications MEDICAL (GENERAL) HISTORY Type Description Date Medical History Asthma Medical History Depression Surgical History cholecystectomy Surgical History tonsillectomy and adenoidectomy Hospitalization History UTI/ monitoring 11/21/17
[2018-11-30] MEDS ORDERED: D5 LR IV SOLUTION 1,000 ML IV SCH (08:48)
--- NOTE | 2018-11-30 08:50 | Discharge Inst-Women's Service ---
Discharge Inst-Women's Serv Depart Medication/Instructions New, Converted or Re-Newed RX: RX on Chart Problems Reviewed?: Yes Consults/Follow Up Additional Follow Up: Yes Orders/Referrals Dr. Flynn in 2-3 weeks Activity Activity: Activity as Tolerated Driving Instructions: No Driving for 1 Week NO SMOKING: NO SMOKING Nothing Inside Vagina: No Douching, No Arispe, No Tampons Diet Discharge Diet: No Restrictions Symptoms to Report to : Bleeding Excessive, Pain Increased, Fever Over 101 Degrees F, Vaginal Bleeding Increase, Questions/Concerns For Any Problems or Questions: Contact Your Physician COLE FLYNN DO Nov 30, 2018 08:50
[2018-11-30] MEDS ORDERED: IBUP-1773 PO (08:51)
[2018-11-30 08:54] LABS: BASOPHILS % (AUTO) 0 % (0-10); EOSINOPHILS # (AUTO) 0.3 10^3/uL (0.0-0.3); EOSINOPHILS % (AUTO) 2 % (0-10); HEMATOCRIT 43 % (35-52); HEMOGLOBIN 14.6 G/DL (11.5-16.0); LYMPHOCYTES # (AUTO) 2.1 X 10^3 (1.0-4.0); LYMPHOCYTES % (AUTO) 17 % (12-44); MEAN CORPUSCULAR HEMOGLOBIN 29 PG (25-34); MEAN CORPUSCULAR HGB CONC 34 G/DL (32-36); MEAN CORPUSCULAR VOLUME 84 FL (80-99); MEAN PLATELET VOLUME 10.4 FL (7.4-10.4); MONOCYTES % (AUTO) 8 % (0-12); NEUTROPHILS # (AUTO) 9.2 X 10^3 (1.8-7.8); NEUTROPHILS % (AUTO) 73 % (42-75); PLATELET COUNT 323 10^3/uL (130-400); RED CELL DISTRIBUTION WIDTH 13.9 % (10.0-14.5); WHITE BLOOD COUNT 12.6 10^3/uL (4.3-11.0)
[2018-11-30] MEDS ORDERED: LACTATED RINGERS 1,000 ML IV PRN (08:56)
[2018-11-30] MEDS ORDERED: HYDROcodone/APAP 5 MG/325 MG (LORTAB) TAB PO PRN (09:00)
[2018-11-30] MEDS ORDERED: KETOROLAC 30 MG/ML VIAL IVP ONE (09:00)
[2018-11-30] MEDS ORDERED: PROMETHAZINE INJ 25 MG/ML (PHENERGAN) AMP IVP PRN (09:00)
[2018-11-30] MEDS ORDERED: fentaNYL INJECTION 100 MCG/2 ML AMP ONE (09:27)
[2018-11-30] MEDS ORDERED: MIDAZOLAM 2 MG/2 ML (VERSED) VIAL ONE (09:28)
[2018-11-30] MEDS ORDERED: DEXAMETHASONE 10 MG/ML (DECADRON) 1 ML VIAL ONE (10:02)
[2018-11-30] MEDS ORDERED: LIDOCAINE PF 2% 5 ML (XYLOCAINE) VIAL ONE (10:02)
[2018-11-30] MEDS ORDERED: PHENYLEPHRINE 100 MCG/ML 10 ML (ANESTHESIA) SYR ONE (10:02)
[2018-11-30] MEDS ORDERED: SEVOFLURANE (ULTANE) 15 ML INHAL SOLN ONE (10:02)
[2018-11-30] MEDS ORDERED: proPOfol 200 MG/20 ML (DIPRIVAN) VIAL IV ONE (10:02)
[2018-11-30] MEDS ORDERED: PROMETHAZINE INJ 25 MG/ML (PHENERGAN) AMP IVP ONE (10:15)
[2018-11-30] MEDS ORDERED: HYDROmorphone 2 MG/ML VIAL (DILAUDID) IV ONE (10:15)
[2018-11-30] MEDS ORDERED: HYDROmorphone 2 MG/ML VIAL (DILAUDID) ONE (10:21)
--- NOTE | 2018-11-30 11:04 | Anesthesia-General Post-Op ---
General Patient Condition Mental Status/LOC: Same as Preop Cardiovascular: Satisfactory Nausea/Vomiting: Absent Respiratory: Satisfactory Pain: Controlled Complications: Absent Post Op Complications Complications None Follow Up Care/Instructions Patient Instructions None needed. Anesthesia/Patient Condition Patient Condition Patient is doing well, no complaints, stable vital signs, no apparent adverse anesthesia problems. No complications reported per nursing. REGIS POWELL CRNA Nov 30, 2018 11:04
--- NOTE | 2018-11-30 17:20 | OPERATIVE REPORT ---
DATE OF SERVICE: 11/30/2018 PREOPERATIVE DIAGNOSIS: A 23-year-old female with missed . POSTOPERATIVE DIAGNOSIS: A 23-year-old female with missed . PROCEDURE PERFORMED: Suction D and C. SURGEON: Cole Flynn DO ANESTHESIA: General endotracheal. ESTIMATED BLOOD LOSS: 100 mL. URINE OUTPUT: 30 mL, clear at the end of the procedure. FLUIDS: 600 mL lactated Ringer's solution. FINDINGS: A small to moderate amount of products of conception, grossly normal-appearing external female genitalia and normal-appearing vaginal mucosa and cervix. SPECIMENS SENT: Products of conception. INDICATIONS FOR PROCEDURE: This 23-year-old female is a patient who has sought care in my office; however, at her first ultrasound, we identified evidence of a missed AB. Beta-hCG levels were falling as such. We discussed conservative management and passing the on her own at home; however, she wished to proceed with suction D and C despite the risks that we discussed in the office including risk of bleeding, infection, damaging the uterus itself, possible infertility issues down the road and risk for labor and cervical distortion. After all of her questions were answered, consent was obtained in the preoperative area and the patient was taken to the operating room. OPERATIVE REPORT IN DETAIL: Once in the operating room, anesthesia was found to be adequate, placed in dorsal lithotomy position, prepped and draped in normal sterile fashion. I began the procedure by entering the bladder using straight catheterization, 30 mL of clear urine removed. I then placed a weighted speculum in the patient's vagina. Right angle retractor was used to visualize the cervix, which was grasped at 12 o'clock position using a long Allis clamp. I then gently sounded, the uterine cavity depth was found to be 8 cm, so I selected 10 cm rigid [place] suction tip while I dilated the cervix to a dilatation of approximately 1 cm, at which point I advanced the suction tip into the uterine cavity and applied the Shorty suction device to a maximum suction pressure of 60 mmHg and then methodically cleared the endometrium of the products of conception. This was done on three to four separate passes after which a gentle curettage was performed using a large endometrial curette and then one final pass with the suction curette is done. There was minimal to scant bleeding noted after the last passage of the suction curette. All the other instruments were removed from the patient's vagina. The patient tolerated the procedure well and sent to recovery area in stable condition. Lap and sponge count is correct at the end of procedure, instrument counts were correct as well. Job ID: [id number] DocumentID: [id number] Dictated Date: 11/30/2018 10:14:39 Car Repairer Pullman Date: 11/30/2018 17:19:59 Dictated By: COLE FLYNN DO
== END 2018-11-30 12:25 | disposition home or self-care (01) ==
LOC: SDC 08:09
PROVIDERS: ATTEND Obstetrics & Gynecology
DX: O02.1 Missed abortion (principal); J45.909 Unspecified asthma, uncomplicated; K21.9 Gastro-esophageal reflux disease without esophagitis; E66.9 Obesity, unspecified; F17.210 Nicotine dependence, cigarettes, uncomplicated; Z68.38 Body mass index [BMI] 38.0-38.9, adult; Z88.5 Allergy status to narcotic agent; Z88.8 Allergy status to other drugs, medicaments and biological substances; Z82.49 Family history of ischemic heart disease and other diseases of the circulatory system; Z82.3 Family history of stroke; Z83.3 Family history of diabetes mellitus; Z79.899 Other long term (current) drug therapy
CPT/HCPCS: 36415; 85025; 86850; 86900; 86901; 87081; 88305; 94664

== ENCOUNTER 2019-05-19 10:06 | Emergency (ER) | payer MEDICAID ==
[~2019-05-19] VITALS: Ht 160 cm; Wt 82.7 kg
[~2019-05-19 10:06] MED LIST changes: +IBUP-1773 PO
[2019-05-19] MEDS ORDERED: ORPHENADRINE 60 MG/2 ML (NORFLEX) AMP IV ONE (10:45)
[2019-05-19] MEDS ORDERED: fentaNYL INJECTION 100 MCG/2 ML AMP IVP ONE (10:45)
--- NOTE | 2019-05-19 11:19 | Diagnostic Imaging Report ---
PROCEDURE: CT lumbar spine without contrast. TECHNIQUE: Multiple contiguous axial images were obtained through the lumbar spine without the use of intravenous contrast. Sagittal and coronal reformations were then performed. Auto Exposure Controls were utilized during the CT exam to meet ALARA standards for radiation dose reduction. Indication: Low back pain. Comparison: None. Discussion: The paraspinal soft tissues are unremarkable. The vertebral bodies are normal in stature, alignment, and signal intensity. Sacroiliac joints are maintained. No fracture or subluxation. Small diffuse disc bulge noted at the L4-L5 level. No neural foraminal narrowing at any level. Alignment is anatomic. Impression: 1. No acute abnormality identified within the lumbar spine. Dictated by: Dictated on workstation # [id number]
--- NOTE | 2019-05-19 11:27 | Diagnostic Imaging Report ---
PROCEDURE: CT pelvis without contrast. TECHNIQUE: Multiple contiguous axial images were obtained through the pelvis without the use of intravenous contrast. Sagittal and coronal reformations were performed. Auto Exposure Controls were utilized during the CT exam to meet ALARA standards for radiation dose reduction. INDICATION: Right hip pain. COMPARISON: CT lumbar spine performed concurrently. FINDINGS: BONES: No fracture. SI joints, hips and symphysis pubis are all normal in alignment. No osteonecrosis of the femoral heads. SOFT TISSUES: The hip musculature is symmetric in bulk. No sizable hip effusion on either side. No peritrochanteric fluid collection is appreciated. No free pelvic fluid. IUD is appropriately positioned within the uterus. Physiologic ovarian follicles are present. IMPRESSION: 1. No osseous or soft tissue abnormality by CT. Dictated by: Dictated on workstation # [id number]
--- NOTE | 2019-05-19 11:36 | ED Hip Pain/Injury ---
General Chief Complaint: Hip/Pelvic Problems Stated Complaint: R LEG PAIN Nursing Triage Note: STATES SHE WAS WALKING YESTERDAY AND FELT HER RIGHT HIP POP AND HAS NOT BEEN ABLE TO WALK ON IT SINCE. Source: patient Exam Limitations: no limitations History of Present Illness Date Seen by Provider: May 19, 2019 Time Seen by Provider: 10:35 Initial Comments This 24-year-old woman presents to the emergency room with complaints of right hip and lower back pain that started when walking home last night. She denies any injury. She was simply walking when she felt her hip pop. She has had problems with her hip "popping in and out" before but has never experienced prolonged pain like this. She was able to finish walking home yesterday evening but has not been able to walk or significantly bear weight since then. She d escribes the pain on the lateral thigh and wrapping around to the right lower back. Pain is exacerbated with weightbearing. She took ibuprofen 800 mg at 07:00 without much benefit. She has some distal numbness in the right lower extremity. No bowel or bladder dysfunction. Allergies and Home Medications Allergies Coded Allergies: codeine (Verified Allergy, Severe, ANAPHYLAXIS, pt has rec Morphine & Lortab w/o issue, 11/30/18) ondansetron (Verified Allergy, Mild, HIVES, 11/28/18) Home Medications Cyclobenzaprine HCl 10 Mg Tablet, 10 MG PO TID PRN for SPASMS Prescribed by: MARIXA OSORIO on 05/19/19 1148 Oxycodone HCl/Acetaminophen 1 Each Tablet, 1 TAB PO Q4H Prescribed by: MARIXA OSORIO on 05/19/19 1148 Prednisone 20 Mg Tab, 20 MG PO BID Prescribed by: MARIXA OSORIO on 05/19/19 1148 Patient Home Medication List Home Medication List Reviewed: Yes Review of Systems Constitutional: no symptoms reported EENTM: no symptoms reported Respiratory: no symptoms reported Cardiovascular: no symptoms reported Gastrointestinal: no symptoms reported Genitourinary: no symptoms reported : No Control/STD Prophylaxis: IUD Musculoskeletal: see HPI Skin: no symptoms reported Psychiatric/Neurological: See HPI Past Zfnhlfr-Psmmlf-Qaujpq Hx Past Med/Social Hx: Reviewed Nursing Past Med/Soc Hx Patient Social History Alcohol Use: Denies Use Recreational Drug Use: Yes Drug of Choice: POT Smoking Status: Current Everyday Smoker Type Used: Cigarettes 2nd Hand Smoke Exposure: Yes Recent Foreign Travel: No Contact w/Someone Who Travel: No Recent Infectious Disease Expo: No Recent Hopitalizations: No Immunizations Up To Date Date of Influenza Vaccine: Feb 05, 2018 Seasonal Allergies Seasonal Allergies: Yes Past Medical History Surgeries: Yes Adenoidectomy, Gallbladder, Tonsillectomy Respiratory: Yes Asthma Cardiac: No Neurological: No : No Female Reproductive Disorders: Denies PAINT MIXER History: IUD Sexually Transmitted Disease: No HIV/AIDS: No Genitourinary: No Gastrointestinal: Yes Gastroesophageal Reflux Musculoskeletal: No Endocrine: No HEENT: No Cancer: No Psychosocial: Yes Anxiety, Depression Integumentary: No Blood Disorders: No Adverse Reaction/Blood Tranf: No (N/A) Physical Exam Vital Signs Vital Signs - First Documented 05/19/19 10:08 Temp 37.0 Pulse 107 Resp 16 B/P (MAP) 97/65 (76) Pulse Ox 100 O2 Delivery Room Air Capillary Refill : Less Than 3 Seconds Height, Weight, BMI Height: 5'3.00" Weight: 218lbs. 0.0oz. 98.767578vs; 32.00 BMI Method:Stated General Appearance: Moderate Distress HEENT: PERRL/EOMI, Normal ENT Inspection Neck: Normal Inspection Cardiovascular: Regular Rate, Rhythm, No Edema, Normal Peripheral Pulses Respiratory: Lungs Clear, Normal Breath Sounds, No Accessory Muscle Use, No Respiratory Distress Back: Vertebral Tenderness (Lower lumbar spine) Extremity: Other (Tenderness over the right lateral thigh into the right buttock and right lower back. No increase in pain with rotation of the hip. No pain directly over the hip joint with palpation.) Skin: Normal Color, Warm/Dry Progress/Results/Core Measures Results/Orders My Orders Orders - MARIXA AQUINO MD Fentanyl Injection (Sublimaze Injection (05/19/19 10:45) Orphenadrine Injection (Norflex Injectio (05/19/19 10:45) Ed Iv/Invasive Line Start (05/19/19 10:45) Ct Lumbar Spine Wo (05/19/19 10:45) Ct Pelvis Wo (05/19/19 10:45) Oxycodone/Apap 5/325mg Tablet (Percocet (05/19/19 11:45) Methylprednisolone Sod Succ (Solu-Medrol (05/19/19 11:45) Crutches (05/19/19 11:49) Medications Given in ED Current Medications Medications Dose Ordered Sig/Kalen Route Start Time Stop Time Status Last Admin Dose Admin Fentanyl Citrate 75 mcg ONCE ONCE IVP 05/19/19 10:45 05/19/19 10:47 DC 05/19/19 10:55 75 MCG Methylprednisolone Sodium Succinate 125 mg ONCE ONCE IVP 05/19/19 11:45 05/19/19 11:46 DC 05/19/19 11:55 125 MG Orphenadrine Citrate 60 mg ONCE ONCE IV 05/19/19 10:45 05/19/19 10:47 DC 05/19/19 10:55 60 MG Oxycodone/ Acetaminophen 1 tab ONCE ONCE PO 05/19/19 11:45 05/19/19 11:46 DC 05/19/19 11:55 1 TAB Vital Signs/I&O 05/19/19 05/19/19 10:08 12:03 Temp 37.0 37.0 Pulse 107 107 Resp 16 16 B/P (MAP) 97/65 (76) 97/65 (76) Pulse Ox 100 100 O2 Delivery Room Air Blood Pressure Mean: 76 Progress Progress Note : Progress Note IV was established to treat pain prior to CT imaging. She was given Norflex and fentanyl. CT demonstrated some disc bulging with minor stenosis at L4-L5. No other acute abnormalities were identified. Patient stated that no and Norflex did not help her pain much. This was followed by Solu-Medrol and oxycodone. Crutches were dispensed. See discharge instructions. Diagnostic Imaging Diagonstic Imaging: CT Plain Films/CT/US/NM/MRI: pelvis Comments CT pelvis viewed by me and report reviewed. See report below: NAME: ANDER SIMMONS [facility] REC#: [id number] PT STATUS: REG ER : 1995 PHYSICIAN: MARIXA AQUINO MD ADMIT DATE: 05/19/19/ER Draft Date of Exam:05/19/19 CT PELVIS WO PROCEDURE: CT pelvis without contrast. TECHNIQUE: Multiple contiguous axial images were obtained through the pelvis without the use of intravenous contrast. Sagittal and coronal reformations were performed. Auto Exposure Controls were utilized during the CT exam to meet ALARA standards for radiation dose reduction. INDICATION: Right hip pain. COMPARISON: CT lumbar spine performed concurrently. FINDINGS: BONES: No fracture. SI joints, hips and symphysis pubis are all normal in alignment. No osteonecrosis of the femoral heads. SOFT TISSUES: The hip musculature is symmetric in bulk. No sizable hip effusion on either side. No peritrochanteric fluid collection is appreciated. No free pelvic fluid. IUD is appropriately positioned within the uterus. Physiologic ovarian follicles are present. IMPRESSION: 1. No osseous or soft tissue abnormality by CT. Dictated on workstation # [id number] Dict: 05/19/19 1116 Trans: 05/19/19 1125 ACB [id number] Interpreted by: SONJA KIRKPATRICK MD Diagonstic Imaging: CT Plain Films/CT/US/NM/MRI: other (lumbar spine) Comments CT lumbar spine viewed by me and report reviewed. See report below: NAME: ANDER SIMMONS [facility] REC#: [id number] PT STATUS: REG ER : 1995 PHYSICIAN: MARIXA AQUINO MD ADMIT DATE: 05/19/19/ER Draft Date of Exam:05/19/19 CT LUMBAR SPINE WO PROCEDURE: CT lumbar spine without contrast. TECHNIQUE: Multiple contiguous axial images were obtained through the lumbar spine without the use of intravenous contrast. Sagittal and coronal reformations were then performed. Auto Exposure Controls were utilized during the CT exam to meet ALARA standards for radiation dose reduction. Indication: Low back pain. Comparison: None. Discussion: The paraspinal soft tissues are unremarkable. The vertebral bodies are normal in stature, alignment, and signal intensity. Sacroiliac joints are maintained. No fracture or subluxation. Small diffuse disc bulge noted at the L4-L5 level. No neural foraminal narrowing at any level. Alignment is anatomic. Impression: 1. No acute abnormality identified within the lumbar spine. Dictated on workstation # [id number] Dict: 05/19/19 1116 Trans: 05/19/19 1119 TS [id number] Interpreted by: WALT MCKENZIE MD Departure Impression Primary Impression: Lumbar radiculopathy Additional Impression: Bulging disc Disposition: 01 HOME, SELF-CARE Condition: Improved Departure-Patient Inst. Decision time for Depature: 11:40 Referrals: [facility] (PCP/Family) Primary Care Physician Patient Instructions: Radiculopathy Add. Discharge Instructions: You may take ibuprofen up to 600 mg every 6 hours as needed for primary pain control. Add Percocet as prescribed for further pain control. Complete your prednisone steroids as prescribed. Take the next dose this evening. You may use cyclobenzaprine for spasming muscles. Follow-up with your primary care provider as soon as possible for further evaluation. If the problem persists she may need further imaging such as MRI. Return to the emergency room if you have worsening symptoms including inability to move legs, numbness in the groin, or difficulty controlling bowels or bladder. All discharge instructions reviewed with patient and/or family. Voiced understanding. Scripts Cyclobenzaprine HCl (Cyclobenzaprine HCl) 10 Mg Tablet 10 MG PO TID PRN for SPASMS, #10 TAB Prov: MARIXA AQUINO MD 05/19/19 Prednisone (Prednisone) 20 Mg Tab 20 MG PO BID, #6 TAB 0 Refills Prov: MARIXA AQUINO MD 05/19/19 Oxycodone HCl/Acetaminophen (Percocet 5-325 mg Tablet) 1 Each Tablet 1 TAB PO Q4H for PAIN-MODERATE MDD 6 TABS, #8 TAB Prov: MARIXA AQUINO MD 05/19/19 MARIXA AQUINO MD May 19, 2019 11:36
--- NOTE | 2019-05-19 11:38 | NUR ---
DR NOTIFIED THAT PT STATES MEDS DID NOT HELP AT ALL.
[2019-05-19] MEDS ORDERED: methylPREDNISolone 125 MG (Solu-MEDROL) VIAL IVP ONE (11:45)
[2019-05-19] MEDS ORDERED: oxyCODONE/APAP 5/325MG (PERCOCET 5) TABLET PO ONE (11:45)
[2019-05-19] MEDS ORDERED: CYCL10TA9 PO (11:48)
[2019-05-19] MEDS ORDERED: PRD20T PO (11:48)
[2019-05-19] MEDS ORDERED: OXYC1TAB87 PO (11:48)
[2019-05-19 12:03] VITALS: BP 97/65
== END 2019-05-19 12:03 | disposition home or self-care (01) ==
LOC: EDUNIT# 10:06 → ER 10:07
DX: M54.16 Radiculopathy, lumbar region (principal); M51.26 Other intervertebral disc displacement, lumbar region; J45.909 Unspecified asthma, uncomplicated; K21.9 Gastro-esophageal reflux disease without esophagitis; F41.9 Anxiety disorder, unspecified; F32.9 Major depressive disorder, single episode, unspecified; F17.210 Nicotine dependence, cigarettes, uncomplicated; Z90.89 Acquired absence of other organs; Z88.5 Allergy status to narcotic agent; Z88.8 Allergy status to other drugs, medicaments and biological substances
CPT/HCPCS: 72131; 72192; 96374; 96375